=== PATIENT | female | born 1960 | race Hispanic/Latino ===

== ENCOUNTER 2018-07-19 09:15 | Emergency (ER) | payer BC, OTHER ==
[2018-07-19 09:16] VITALS: BMI 25.4
[2018-07-19 09:31] VITALS: RESP 18
--- NOTE | 2018-07-19 10:02 | ED PDOC ---
Arrival/HPI - General Chief Complaint: Upper Extremity Problem/Injury Time Seen by Provider: 07/19/18 09:41 Historian: Patient - History of Present Illness Narrative History of Present Illness (Text): 07/19/18 10:07 A 58 year old female, whose past medical history includes hypertension (takes medication), presents to the emergency department complaining of left arm ache/numbness starting today. Patient reports upon waking up this morning, she felt tension and aching to her left shoulder and left arm. 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 States she currently still feels this numbness here in the ER. Also, patient mentions experiencing some left-sided neck pain as well. Patient denies any back pain, shortness of breath, chest pain, abdominal pain, or any other complaints at this time. PMD: Dr. Macedo Past Medical History - Provider Review Nursing Documentation Reviewed: Yes - Tetanus Immunization Tetanus Immunization: Unknown - Cardiac Hx Hypertension: Yes - Psychiatric Hx Psychophysiologic Disorder: No Hx Substance Use: No - Past Surgical History Past Surgical History: No Previous - Anesthesia Hx Anesthesia: Yes Hx Anesthesia Reactions: No Hx Malignant Hyperthermia: No - Suicidal Assessment Feels Threatened In Home Enviroment: No Family/Social History - Physician Review Nursing Documentation Reviewed: Yes Family/Social History: No Known Family HX Smoking Status: Former Smoker Hx Alcohol Use: Yes Hx Substance Use: No Hx Substance Use Treatment: No Allergies/Home Meds Allergies/Adverse Reactions: Allergies No Known Allergies Allergy (Verified 07/14/14 11:12) Home Medications: Home Meds Medication Instructions Recorded Confirmed Bisoprolol Fumarate/Hydrochl [Ziac 1 tab PO DAILY 07/14/14 07/14/14 5 mg-6.25 mg] Lisinopril [Zestril] 5 mg PO DAILY 07/14/14 07/14/14 Review of Systems - Physician Review All systems were reviewed & negative as marked: Yes - Review of Systems Constitutional: absent: Fevers, Night Sweats Respiratory: absent: SOB Cardiovascular: absent: Chest Pain Gastrointestinal: absent: Abdominal Pain Musculoskeletal: Neck Pain (left-side), Other (left arm ache/numbness). absent: Back Pain Physical Exam Vital Signs Reviewed: Yes Vital Signs Temp Pulse Resp BP Pulse Ox 07/19/18 09:16 98.5 F 75 18 148/79 97 Temperature: Afebrile Blood Pressure: Normal Pulse: Regular Respiratory Rate: Normal Appearance: Positive for: Well-Appearing, Non-Toxic, Comfortable Pain Distress: None Mental Status: Positive for: Alert and Oriented X 3 - Systems Exam Head: Present: Atraumatic, Normocephalic Pupils: Present: PERRL Extroacular Muscles: Present: EOMI Conjunctiva: Present: Normal Neck: Present: Other (tenderness left-side) Respiratory/Chest: Present: Clear to Auscultation, Good Air Exchange. No: Respiratory Distress, Accessory Muscle Use Cardiovascular: Present: Regular Rate and Rhythm, Normal S1, S2. No: Murmurs Abdomen: No: Tenderness, Distention, Peritoneal Signs Back: Present: Normal Inspection Upper Extremity: Present: Normal Inspection, Tenderness (left elbow). No: Cyanosis, Edema Lower Extremity: Present: Normal Inspection. No: Edema Neurological: Present: GCS=15, CN II-XII Intact, Speech Normal Skin: Present: Warm, Dry, Normal Color. No: Rashes Psychiatric: Present: Alert, Oriented x 3, Normal Insight, Normal Concentration Medical Decision Making ED Course and Treatment: 07/19/18 10:08 Impression: 58 year old female with left arm and shoulder aching/numbness. Differential Diagnoses: Neuropathy vs. Musculoskeletal. Plan: -- EKG -- Motrin -- Reassess and disposition Progress Notes: EKG: Ordered, reviewed, and independently interpreted the EKG. Rate : 61 BPM Rhythm : NSR Interpretation : No ST-segment elevations or depressions, no T-wave inversions, normal intervals. Comparison : No previous EKG for comparison. 07/19/18 11:11 Patient observed in the ED with improvement of symptoms. Only has tingling sensation to fingers of ulnar distribution consistent with her left arm tenderness to ulnar nerve. Patient denies weakness. No slurred speech. No chest pain. She was advised to take NSAIDS for 2-3days and to make sure to follow up with her PMD in 1-2days. She will take NSAIDS with food. She will return to the ED if symptoms worsen, chest pain, or any other concern. - Scribe Statement The provider has reviewed the documentation as recorded by the Arnoldo Triana Provider Arnoldo Attestation: All medical record entries made by the Julianibmarian were at my direction and personally dictated by me. I have reviewed the chart and agree that the record accurately reflects my personal performance of the history, physical exam, medical decision making, and the department course for this patient. I have also personally directed, reviewed, and agree with the discharge instructions and disposition. Disposition/Present on Arrival - Present on Arrival Any Indicators Present on Arrival: No History of DVT/PE: No History of Uncontrolled Diabetes: No Urinary Catheter: No History of Decub. Ulcer: No History Surgical Site Infection Following: None - Disposition Have Diagnosis and Disposition been Completed?: Yes Diagnosis: Left arm pain, Radicular pain in left arm Disposition: HOME/ ROUTINE Disposition Time: 11:14 Patient Plan: Discharge Patient Problems: Current Active Problems Problem Status Onset Left arm pain Acute Radicular pain in left arm Acute Condition: IMPROVED Discharge Instructions (ExitCare): Neuropathic Pain Additional Instructions: OSCAR IBARRA, thank you for letting us take care of you today. Your provider was Emeka Milan DO and you were treated for Left Arm Pain, Radicular Pain. The emergency medical care you received today was directed at your acute symptoms. If you were prescribed any medication, please fill it and take as directed. It may take several days for your symptoms to resolve. Return to the Emergency Department if your symptoms worsen, do not improve, or if you have any other problems. Please contact your doctor or call one of the physicians/clinics you have been referred to that are listed on the Patient Visit Information form that is included in your discharge packet. Bring any paperwork you were given at discharge with you along with any medications you are taking to your follow up visit. Our treatment cannot replace ongoing medical care by a primary care provider outside of the emergency department. Thank you for allowing the [facility] team to be part of your care today. If you had an X-Ray or CT scan: A Radiologist will review the ED reading if any change in treatment is needed we will contact you. If you had a blood, urine, or wound culture: It will take several days for the results, if any change in treatment is needed we will contact you. If you had an STI test: It will take 48 hours for the results. Please call after 1 week if you have not heard back. Prescriptions: Ibuprofen [Motrin] 600 mg PO Q6 PRN #30 tab PRN Reason: Pain, Moderate (4-7) Referrals: Jared Macedo MD [Primary Care Provider] - Follow up with primary Forms: [facility] ([place]), WORK NOTE
[2018-07-19 11:19] VITALS: BP 134/82; PULSE 63; TEMP 98.7; O2SAT 98
--- NOTE | 2018-07-19 11:48 | CARD ---
APPROVED REPORT Date of service: 07/19/2018 EKG Measurement Heart [id number] <Conclusion> Normal sinus rhythm Normal ECG
== END 2018-07-19 11:18 | disposition home or self-care (01) ==
LOC: ED 09:15
DX: M79.602 Pain in left arm (principal); I10 Essential (primary) hypertension; Z87.891 Personal history of nicotine dependence